=== PATIENT | female | born 1975 | race Hispanic/Latino ===

== ENCOUNTER 2019-11-14 19:19 | Emergency (ER) | payer OTHER ==
[~2019-11-14] VITALS: Ht 162.6 cm; Wt 118.4 kg
--- OUTSIDE RECORDS SUMMARY | 2019-11-14 19:22 | XMS REPORT ---
Author Author [facility] Address Unknown Phone Unavailable Care Team Providers Care Contamination Consultant Name Role Phone Unavailable Unavailable Payers Payer Name Policy Type Policy Number Effective Date Expiration Date Problems This patient has no known problems. Allergies, Adverse Reactions, Alerts Allergy Name Allergy Type Status Severity Reaction(s) Onset Date Inactive Date Treating Clinician Comments No Known Allergies DA Active U 2016-01-05 00:00:00 Medications This patient has no known medications.
[2019-11-14] MEDS ORDERED: ASPIRIN 81 MG CHEW TAB PO ONE (19:45)
[2019-11-14 19:58] LABS: BASOPHILS # (AUTO) 0.1 (0.0-0.1); BASOPHILS % 0.7 % (0.0-1.0); EOSINOPHILS # (AUTO) 0.3 (0.0-0.4); EOSINOPHILS % 2.9 % (0.0-6.0); HEMOGLOBIN 13.7 g/dL (12.0-16.0); LYMPHOCYTES % 34.1 % (18.0-39.1); MEAN CORPUSCULAR HEMOGLOBIN 29.5 pg (28-32); MEAN CORPUSCULAR HGB CONC 32.6 g/dL (31-35); MEAN CORPUSCULAR VOLUME 90.3 fL (81-99); MONOCYTES # (AUTO) 0.5 (0.2-0.8); MONOCYTES % 5.8 % (4.4-11.3); NEUTROPHILS # (AUTO) 4.9 (2.1-6.9); NEUTROPHILS % 56.3 % (38.7-80.0); PLATELET COUNT 336 x10e3/uL (140-360); RED BLOOD COUNT 4.65 x10e6/uL (3.6-5.1); RED CELL DISTRIBUTION WIDTH 13.3 % (11.7-14.4)
[2019-11-14 20:04] LABS: BILIRUBIN,URINE NEGATIVE (NEGATIVE); CLARITY,URINE CLEAR (CLEAR); COLOR,URINE YELLOW (YELLOW); KETONES,URINE NEGATIVE (NEGATIVE); LEUKOCYTE ESTERASE ,URINE NEGATIVE (NEGATIVE); NITRITE,URINE NEGATIVE (NEGATIVE); PROTEIN,URINE DIPSTICK NEGATIVE (NEGATIVE); URINE UROBILINOGEN 0.2 mg/dL (0.2 - 1)
[2019-11-14 20:07] LABS: INR 0.91; PROTHROMBIN TIME 12.8 seconds (11.9-14.5)
[2019-11-14 20:08] LABS: PARTIAL THROMBOPLASTIN TIME 33.5 seconds (23.8-35.5)
[2019-11-14 20:08] LABS: STREPTOCOCCUS GRP A ANTIGEN NEGATIVE (NEGATIVE)
[2019-11-14 20:15] LABS: ALANINE AMINOTRANSFERASE 30 IU/L (0-55); ALBUMIN/GLOBULIN RATIO 1.1 (0.8-2.0); ALKALINE PHOSPHATASE 87 IU/L (40-150); ANION GAP 10.6 mmol/L (8-16); BLOOD UREA NITROGEN 14 mg/dL (7-26); BUN/CREATININE RATIO 20 (6-25); CALCIUM 9.1 mg/dL (8.4-10.2); CARBON DIOXIDE 27 mmol/L (22-29); CHLORIDE 106 mmol/L (98-107); CREATINE KINASE 184 IU/L (29-168); CREATININE, SERUM 0.69 mg/dL (0.57-1.11); EST GLOMERULAR FILTRATION RATE > 60 ML/MIN (60-); GLUCOSE 89 mg/dL (74-118); POTASSIUM 3.6 mmol/L (3.5-5.1); SODIUM 140 mmol/L (136-145)
[2019-11-14 20:17] LABS: BACTERIA,URINE FEW /HPF; RBC,URINE 0-5 /HPF (0-5)
[2019-11-14 20:20] LABS: INFLUENZAE A&B ANTIGEN (RAPID) NEGATIVE (NEGATIVE)
--- NOTE | 2019-11-14 20:24 | Diagnostic Imaging Report ---
EXAM: CHEST SINGLE (PORTABLE) DATE: 11/14/2019 7:34 PM INDICATION: Chest pain ^ERMD ORDER ^[id number] ^2004 ^Y COMPARISON: None FINDINGS: Lines and tubes: None The cardiac silhouette is prominent but may be accentuated by portable technique and low lung volumes. No focal pulmonary opacity, pleural effusion or pneumothorax. Upper abdomen unremarkable. No acute bony abnormality seen. IMPRESSION: Borderline heart size. No evidence for acute disease. Signed by: Dr. Derrick Paiz M.D. on 11/14/2019 8:20 PM
[2019-11-14 20:46] VITALS: BP 142/68
== END 2019-11-14 21:05 | disposition home or self-care (01) ==
LOC: ER 19:19
DX: R07.89 Other chest pain (principal); I10 Essential (primary) hypertension; J44.9 Chronic obstructive pulmonary disease, unspecified; K21.9 Gastro-esophageal reflux disease without esophagitis
CPT/HCPCS: 36415; 71045; 80053; 81001; 82550; 82553; 83518; 83880; 84484; 85025; 85610; 85730; 87070; 87400; 93005; 99284

== ENCOUNTER 2021-08-26 22:31 | Emergency (ER) | payer OTHER ==
[~2021-08-26] VITALS: Ht 162.6 cm; Wt 113.4 kg
== END 2021-08-26 22:52 | disposition home or self-care (01) ==
LOC: ER 22:42
DX: U07.1 COVID-19 (principal); R50.9 Fever, unspecified; R06.02 Shortness of breath; R05.9 Cough, unspecified; I10 Essential (primary) hypertension; F41.9 Anxiety disorder, unspecified
CPT/HCPCS: 99282

== ENCOUNTER 2021-08-29 21:28 | Inpatient (IN) | payer OTHER ==
[~2021-08-29] VITALS: Ht 162.6 cm; Wt 113.4 kg
[2021-08-29] MEDS ORDERED: CEFTRIAXONE 2 GM in SODIUM CHLORIDE 0.9% 100 ML IV ONE (21:45)
[2021-08-29] MEDS ORDERED: DEXAMETHASONE SOD PHOS 10 MG/1 ML VIAL IV ONE (21:45)
[2021-08-29 21:49] LABS: BASOPHILS % 0.3 % (0.0-1.0); EOSINOPHILS % 0.3 % (0.0-6.0); HEMATOCRIT 43.3 % (34.2-44.1); HEMOGLOBIN 13.9 g/dL (12.0-16.0); LYMPHOCYTES # (AUTO) 2.2 (1.0-3.2); MEAN CORPUSCULAR HEMOGLOBIN 28.9 pg (28-32); MEAN CORPUSCULAR HGB CONC 32.1 g/dL (31-35); MONOCYTES # (AUTO) 0.3 (0.2-0.8); NEUTROPHILS # (AUTO) 4.2 (2.1-6.9); NEUTROPHILS % 62.1 % (38.7-80.0); PLATELET COUNT 280 x10e3/uL (140-360); RED BLOOD COUNT 4.81 x10e6/uL (3.6-5.1); RED CELL DISTRIBUTION WIDTH 13.6 % (11.7-14.4)
[2021-08-29 22:09] LABS: ALANINE AMINOTRANSFERASE 29 IU/L (0-55); ALBUMIN 2.9 g/dL (3.5-5.0); ALBUMIN/GLOBULIN RATIO 0.7 (0.8-2.0); ALKALINE PHOSPHATASE 46 IU/L (40-150); ANION GAP 13.9 mmol/L (8-16); BLOOD UREA NITROGEN 13 mg/dL (7-26); BUN/CREATININE RATIO 19 (6-25); CALCIUM 8.1 mg/dL (8.4-10.2); CARBON DIOXIDE 22 mmol/L (22-29); CHLORIDE 105 mmol/L (98-107); CREATINE KINASE 45 IU/L (29-168); EST GLOMERULAR FILTRATION RATE 90 ML/MIN (60-); GLUCOSE 106 mg/dL (74-118); POTASSIUM 3.9 mmol/L (3.5-5.1); SODIUM 137 mmol/L (136-145)
[2021-08-29] MEDS ORDERED: SODIUM CHLORIDE 0.9% 250ML 250 ML ONE (22:12)
[2021-08-29] MEDS ORDERED: ACETAMINOPHEN 325 MG TAB PO PRN (23:00)
[2021-08-30] VITALS (9 sets, daily range): BP systolic 121–143; BP diastolic 60–78
[2021-08-30] MEDS ORDERED: ONDANSETRON HCL INJ 2MG/ML 2ML 2 MG/ML VIAL IV PRN (00:30)
[2021-08-30] MEDS ORDERED: HYDRALAZINE HCL 20 MG/ML VIAL IV PRN (00:30)
[2021-08-30] MEDS ORDERED: DOCUSATE SODIUM 100 MG CAP PO PRN (00:30)
[2021-08-30] MEDS ORDERED: LISINOPRIL10 MG PO (00:33)
[2021-08-30 07:22] LABS: CREATINE KINASE MB 0.3 ng/mL (0-5.0)
[2021-08-30 07:29] LABS: FERRITIN 670.01 ng/mL (4.63-204.00)
[2021-08-30 07:31] LABS: MAGNESIUM 2.2 MG/DL (1.3-2.1); PHOSPHORUS 2.6 MG/DL (2.3-4.7)
[2021-08-30] MEDS ORDERED: CEFTRIAXONE 2 GM in SODIUM CHLORIDE 0.9% 100 ML IV SCH (09:00)
[2021-08-30] MEDS ORDERED: DEXAMETHASONE SOD PHOS 10 MG/1 ML VIAL IV SCH (09:00)
[2021-08-30] MEDS: ASCORBIC ACID 500 MG TAB PO SCH ×2 (09:54→16:39)
[2021-08-30] MEDS: ZINC SULFATE 50 MG CAP PO SCH (09:54)
[2021-08-30] MEDS: DEXAMETHASONE SOD PHOS 10 MG/1 ML VIAL IV SCH (09:54)
[2021-08-30] MEDS: ENOXAPARIN 30 MG/0.3 ML SYR SC SCH ×2 (09:54→16:39)
[2021-08-30] MEDS ORDERED: REMDESIVIR 100MG 200 MG in SODIUM CHLORIDE 0.9% 100 ML IV ONE (12:00)
[2021-08-30] MEDS ORDERED: SODIUM CHLORIDE 0.9% 250ML 250 ML ONE (13:39)
[2021-08-30] MEDS ORDERED: Vancomycin IV 1 GM in SODIUM CHLORIDE 0.9% 250ML 250 ML IV ONE (14:00)
[2021-08-30] MEDS: AZITHROMYCIN 250 MG TAB PO SCH (20:24)
[2021-08-30] MEDS: CEFTRIAXONE 1 GM in SODIUM CHLORIDE 0.9% 50ML 50 ML IV SCH (20:24)
[2021-08-31] VITALS (8 sets, daily range): BP systolic 121–146; BP diastolic 60–76
[2021-08-31] MEDS ORDERED: ONDANSETRON HCL 4 MG ORAL DISINTEGRATING TAB PO PRN (07:30)
[2021-08-31] MEDS: DEXAMETHASONE SOD PHOS 10 MG/1 ML VIAL IV SCH (10:26)
[2021-08-31] MEDS: ASCORBIC ACID 500 MG TAB PO SCH ×2 (10:27→16:25)
[2021-08-31] MEDS: ENOXAPARIN 30 MG/0.3 ML SYR SC SCH ×2 (10:27→16:25)
[2021-08-31] MEDS: ZINC SULFATE 50 MG CAP PO SCH (10:27)
[2021-08-31] MEDS: REMDESIVIR 100MG 100 MG in SODIUM CHLORIDE 0.9% 100 ML IV SCH (12:12)
[2021-08-31] MEDS: AZITHROMYCIN 250 MG TAB PO SCH (21:25)
[2021-08-31] MEDS: CEFTRIAXONE 1 GM in SODIUM CHLORIDE 0.9% 50ML 50 ML IV SCH (21:30)
[2021-09-01] VITALS (8 sets, daily range): BP systolic 123–140; BP diastolic 58–79
[2021-09-01] MEDS: DEXAMETHASONE SOD PHOS 10 MG/1 ML VIAL IV SCH (08:32)
[2021-09-01] MEDS: LISINOPRIL 10 MG TAB PO SCH (08:32)
[2021-09-01] MEDS: ZINC SULFATE 50 MG CAP PO SCH (08:33)
[2021-09-01] MEDS: ASCORBIC ACID 500 MG TAB PO SCH ×2 (08:33→16:34)
[2021-09-01] MEDS: ENOXAPARIN 30 MG/0.3 ML SYR SC SCH ×2 (08:33→16:34)
[2021-09-01] MEDS: REMDESIVIR 100MG 100 MG in SODIUM CHLORIDE 0.9% 100 ML IV SCH (11:32)
[2021-09-01] MEDS ORDERED: TEMAZEPAM 15 MG CAP PO PRN (21:00)
[2021-09-01] MEDS: CEFTRIAXONE 1 GM in SODIUM CHLORIDE 0.9% 50ML 50 ML IV SCH (21:04)
[2021-09-01] MEDS: AZITHROMYCIN 250 MG TAB PO SCH (21:04)
[2021-09-02 00:15] VITALS: BP 136/71
[2021-09-02 04:00] VITALS: BP 123/64
[2021-09-02 07:50] VITALS: BP_SYST 123; BP_SYST 128; BP_DIAS 64; BP_DIAS 66
[2021-09-02] MEDS: LISINOPRIL 10 MG TAB PO SCH (08:35)
[2021-09-02] MEDS: DEXAMETHASONE SOD PHOS 10 MG/1 ML VIAL IV SCH (08:35)
[2021-09-02] MEDS: ENOXAPARIN 30 MG/0.3 ML SYR SC SCH ×2 (08:36→16:29)
[2021-09-02] MEDS: ZINC SULFATE 50 MG CAP PO SCH (08:36)
[2021-09-02] MEDS: ASCORBIC ACID 500 MG TAB PO SCH ×2 (08:36→16:29)
[2021-09-02 11:41] VITALS: BP 141/88
[2021-09-02] MEDS: REMDESIVIR 100MG 100 MG in SODIUM CHLORIDE 0.9% 100 ML IV SCH (12:30)
[2021-09-02 20:00] VITALS: BP 151/79
[2021-09-03] VITALS: BP 136/67
[2021-09-03 04:00] VITALS: BP 123/78
[2021-09-03 08:00] VITALS: BP 123/78
[2021-09-03] MEDS: ENOXAPARIN 30 MG/0.3 ML SYR SC SCH (09:35)
[2021-09-03] MEDS: ZINC SULFATE 50 MG CAP PO SCH (09:35)
[2021-09-03] MEDS: DEXAMETHASONE SOD PHOS 10 MG/1 ML VIAL IV SCH (09:35)
[2021-09-03] MEDS: ASCORBIC ACID 500 MG TAB PO SCH (09:35)
[2021-09-03] MEDS: LISINOPRIL 10 MG TAB PO SCH (09:35)
[2021-09-03] MEDS ORDERED: DECADRON4 M1 PO (12:34)
[2021-09-03] MEDS ORDERED: REMDESIVIR 100MG 100 MG in SODIUM CHLORIDE 0.9% 100 ML IV ONE (14:00)
== END 2021-09-03 17:15 | disposition home or self-care (01) | DRG 177 ==
LOC: ER 21:36 → ERHOLD 22:57 → MED/SURG2 23:55 → IMCU 09-02 14:24
PROVIDERS: ADMIT Internal Medicine; ATTEND Internal Medicine
PROC: 3E0333Z Introduction of Anti-inflammatory into Peripheral Vein, Percutaneous Approach (ICD-10-PCS; principal; 2021-08-29)
PROC: XW033E5 Introduction of Remdesivir Anti-infective into Peripheral Vein, Percutaneous Approach, New Technology Group 5 (ICD-10-PCS; 2021-08-30)
DX: U07.1 COVID-19 (principal); J12.82 Pneumonia due to coronavirus disease 2019; J15.20 Pneumonia due to staphylococcus, unspecified; J96.01 Acute respiratory failure with hypoxia; Z68.41 Body mass index [BMI] 40.0-44.9, adult; E66.01 Morbid (severe) obesity due to excess calories; I10 Essential (primary) hypertension; K21.9 Gastro-esophageal reflux disease without esophagitis; Z82.49 Family history of ischemic heart disease and other diseases of the circulatory system
CPT/HCPCS: 36415; 71045; 80053; 82550; 82553; 82728; 83605; 83615; 83735; 84100; 84484; 85025; 85379; 86141; 87040; 93005; 94799; 99284; J0456; J0696; J1100; J1650; J3370; J7050; U0002